=== PATIENT | male | born 1995 | race Caucasian/White ===

== ENCOUNTER 2018-12-05 15:12 | Emergency (ER) | payer OTHER ==
[2018-12-05] MEDS ORDERED: FENTANYL CITR 100 MCG/2 ML ONE (16:02)
[2018-12-05] MEDS ORDERED: ONDANSETRON 4 MG/2 ML VIAL ONE ×2 (16:02→17:48)
[2018-12-05] MEDS ORDERED: CEFAZOLIN 1GM (PREMIX IV) 1 GM/50 ML BAG ONE (16:03)
--- NOTE | 2018-12-05 16:03 | RAD REPORT ---
EXAM DESCRIPTION: CT - CTFB CLINICAL HISTORY: DEFORMITY Trauma, jaw pain COMPARISON: No comparisons TECHNIQUE: Axial 2 mm thick images of the face were obtained with sagittal and coronal reconstructio n images. All CT scans are performed using dose optimization technique as appropriate and may include automated exposure control or mA/KV adjustment according to patient size. FINDINGS: Fracture of the right parasymphyseal region of the mandible is present. In addition there is fracture of the left mandibular ramus with mild displacement. The globes and orbital contents are grossly unremarkable.The paranasal sinuses and mastoids are clear . IMPRESSION: Fracture of the left mandibular ramus as well as the right parasymphyseal region of the mandible noted.
[2018-12-05 16:09] LABS: Absolute Lymphocytes (CBC) 1.2 K/uL (0.7-4.9); Absolute Monocytes 0.6 K/uL (0.1-1.3); Absolute Neutrophil 4.8 K/uL (1.8-8.0); Basophils % 0.3 % (0-1.3); Eosinophils % 0.5 % (0-4.4); Hematocrit 44.5 % (39.6-49.0); Lymphocytes % 17.9 % (15.3-44.8); MPV 7.6 fL (7.6-11.3); Monocytes % 8.4 % (3.3-12.3); RBC Red Blood Cell Count 5.28 M/uL (4.33-5.43)
[2018-12-05 16:21] LABS: BUN Blood Urea Nitrogen 13 mg/dL (7-18); Bicarbonate 30 mmol/L (21-32); Glucose Level 105 mg/dL (74-106); Potassium 4.4 mmol/L (3.5-5.1); Sodium Level 140 mmol/L (136-145)
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
[2018-12-05] MEDS ORDERED: MEPERIDINE HCL 50 MG/ML AMP ONE (17:48)
== END 2018-12-05 18:58 | disposition short-term general hospital (02) ==
LOC: ER 15:12
DX: S02.641A Fracture of ramus of right mandible, initial encounter for closed fracture (principal); X58.XXXA Exposure to other specified factors, initial encounter; Y93.89 Activity, other specified; Y92.149 Unspecified place in prison as the place of occurrence of the external cause
CPT/HCPCS: 36415; 70486; 76377; 80048; 85025; 96365; 96375; 99285; J0690; J2175; J2405; J3010